=== PATIENT | male | born 1940 | race Asian ===

== ENCOUNTER 2020-07-20 15:15 | Emergency (ER) | payer MEDICARE ==
[2020-07-20 15:35] VITALS: BP 155/86; PULSE 72; RESP 18; TEMP 97
[2020-07-20] MEDS ORDERED: LIDOCAINE 1% INJ 10MG/ML (20 ML MDV) SQ ONE (16:50)
[2020-07-20] MEDS ORDERED: BACITRACIN OINT 1 EACH PACKET TOPICAL ONE (16:50)
--- NOTE | 2020-07-20 17:34 | ED ---
Fall HPI - General Chief Complaint: Fall Stated Complaint: Fall, L ear bledding Time Seen by Provider: 07/20/20 16:40 Source: family Mode of arrival: ambulatory - History of Present Illness Initial Comments: Patient is an 80-year-old male presenting to the emergency department with a laceration to his left ear. Patient speaks very little Bulgarian, family members are helping to translate. Family states that patient lost his balance on a step, and fell into a chair, slicing his left ear on the chair, about 6 hors prior to arrival. He did not hit his head hard, but more "fell into the side of it." There is no loss of consciousness. He's had no headache, no neck pain. There is no nausea or vomiting, no blurry vision. Patient states he feels fine. He states he simply here for the laceration repair. He is up-to-date with his tetanus vaccine. He is not on blood thinners. There are no further complaints at this time. - Related Data Previous Rx's Medication Instructions Recorded Docusate [Colace] 100 mg PO BID #30 capsule 02/22/16 HYDROcodone/APAP 5-325MG [[place] 1 tab PO Q4HR PRN #30 tab 02/22/16 5-325] Tamsulosin HCl [Flomax] 0.4 mg PO DAILY #20 cap 02/23/16 Allergies Allergy/AdvReac Type Severity Reaction Status Date / Time No Known Allergies Allergy Verified 07/20/20 15:35 Review of Systems ROS Statement: Those systems with pertinent positive or pertinent negative responses have been documented in the HPI. ROS Other: All systems not noted in ROS Statement are negative. Past Medical History Past Medical History: Osteoarthritis (OA), Prostate Disorder Additional Past Medical History / Comment(s): PT HAS HAD STOMACH ACHE FOR WEEKS, possible prostate problems History of Any Multi-Drug Resistant Organisms: None Reported Additional Past Surgical History / Comment(s): CATARACT PHOEBE. EYES, COLONOSCOPY Past Anesthesia/Blood Transfusion Reactions: No Reported Reaction Additional Past Anesthesia/Blood Transfusion Reaction / Comment(s): UNKNOWN FOR FAMILY- PT IS VERY HEALTHY & HAS HAD ONLY CATARACT SURGERY DONE Past Psychological History: No Psychological Hx Reported Past Alcohol Use History: None Reported Past Drug Use History: None Reported - Past Family History Mother Family Medical History: No Reported History General Exam - General Exam Comments Initial Comments: GENERAL: Patient is well-developed and well-nourished. Patient is nontoxic and in no acute distress. HEAD: Atraumatic, normocephalic. There is no hematomas, no signs of basal skull fracture. EYES: Pupils equal round and reactive to light, extraocular movements intact, sclera anicteric, conjunctiva are normal. Eyelids were unremarkable. ENT: TMs normal, nares patent, oropharynx clear without exudates. Moist mucous membranes. NECK: Normal range of motion, supple without lymphadenopathy or JVD. There is no midline tenderness. LUNGS: Unlabored respirations. Breath sounds clear to auscultation bilaterally and equal. No wheezes rales or rhonchi. HEART: Regular rate and rhythm without murmurs, rubs or gallops. ABDOMEN: Soft, nontender, normoactive bowel sounds. No guarding, no rebound. No masses appreciated. : Deferred MUSCULOSKELETAL: Normal extremities with adequate strength and normal range of motion, no pitting or edema. No clubbing or cyanosis. NEUROLOGICAL: Patient is alert and oriented x 3. Motor and sensory are also intact. Cranial nerves II through XII grossly intact. Symmetrical smile. Normal speech, normal gait. PSYCH: Normal mood, normal affect. SKIN: Warm, Dry, normal turgor, no rashes. Patient has a 2 cm laceration in the left upper earlobe, mild bleeding, controlled with bandage. Limitations: no limitations, language barrier Course Vital Signs 07/20/20 07/20/20 15:27 17:47 Temperature 97.0 F L Pulse Rate 72 Respiratory 18 18 Rate Blood Pressure 155/86 O2 Sat by Pulse 98 Oximetry Procedures - Laceration Laceration #1 Consent Obtained: verbal consent Indication: laceration Site: face (Left upper earlobe) Size (cm): 2 Description: linear Depth: simple, single layer Anesthetic Used: lidocaine 1% Anesthesia Technique: local infiltration Amount (mls): 3 Pre-repair: irrigated extensively Type of Sutures: nylon Size of Sutures: 5-0 Number of Sutures: 6 Technique: simple, interrupted Patient Tolerated Procedure: well Medical Decision Making - Medical Decision Making Patient is an 80-year-old male here for a laceration to his left ear. Patient lost his balance tripped on a step, fell into a chair slicing his left ear about 6 hours prior to arrival. He states he did not hit his head hard, this no loss of consciousness he has no headache. No blood thinners. No nausea or vomiting. His exam is unremarkable except for a 2 cm laceration in his left upper earlobe. He is up-to-date with his tetanus vaccine. Patient's wound was cleaned, closed with 6, 5-0 sutures. He tolerated procedure well. He is stable for discharge. Topical antibiotic will be used. Stitches will be removed in 7-10 days. Patient is stable for discharge. Patient is in agreement with this plan of care. Return parameters were discussed with the patient and they verbalized understanding. Case discussed with Dr. Anderson. Disposition Clinical Impression: Fall, Laceration of left earlobe Disposition: HOME SELF-CARE Condition: Stable Instructions (If sedation given, give patient instructions): Care For Your Stitches (ED) Additional Instructions: Please return to the Emergency Department if symptoms worsen or any other concerns. Stitches need to be removed in 7-10 days. Apply topical antibiotic twice daily. Keep clean and dry. May take showers as normal. Is patient prescribed a controlled substance at d/c from ED?: No Referrals: Kevin Narvaez MD [Primary Care Provider] - 1-2 days
== END 2020-07-20 17:48 | disposition home or self-care (01) ==
LOC: EC 15:15
DX: S01.312A Laceration without foreign body of left ear, initial encounter (principal); M19.90 Unspecified osteoarthritis, unspecified site; W07.XXXA Fall from chair, initial encounter
CPT/HCPCS: 99283; 12011; J2001

== ENCOUNTER 2020-08-09 16:10 | Emergency (ER) | payer MEDICARE ==
[2020-08-09 16:21] VITALS: BP 152/83; PULSE 95; RESP 18; TEMP 99
--- NOTE | 2020-08-09 16:42 | ED ---
General Adult HPI - General Chief complaint: Fall Stated complaint: Weakness Time Seen by Provider: 08/09/20 16:26 Source: patient, family, EMS, RN notes reviewed, old records reviewed Mode of arrival: EMS Limitations: language barrier - History of Present Illness Initial comments: 80-year-old male presenting status post fall. 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 History is obtained from the patient's brother who is bedside who does speak [place]ian. The patient does not speak [place]ian very well but is able to answer some simple questions. Patient denying any pain complaints. He has had several falls in the last 2 weeks but does not wish to have this evaluated. He denies any pain complaints. He denies head injury. He states that there was a minor elbow injury and abrasion but does not want imaging or tenderness. Patient wishes to be discharged without further testing. - Related Data Previous Rx's Medication Instructions Recorded Docusate [Colace] 100 mg PO BID #30 capsule 02/22/16 HYDROcodone/APAP 5-325MG [[place] 1 tab PO Q4HR PRN #30 tab 02/22/16 5-325] Tamsulosin HCl [Flomax] 0.4 mg PO DAILY #20 cap 02/23/16 Allergies Allergy/AdvReac Type Severity Reaction Status Date / Time No Known Allergies Allergy Verified 08/09/20 16:20 Review of Systems ROS Statement: Those systems with pertinent positive or pertinent negative responses have been documented in the HPI. ROS Other: All systems not noted in ROS Statement are negative. Past Medical History Past Medical History: Osteoarthritis (OA), Prostate Disorder Additional Past Medical History / Comment(s): PT HAS HAD STOMACH ACHE FOR WEEKS, possible prostate problems History of Any Multi-Drug Resistant Organisms: None Reported Additional Past Surgical History / Comment(s): CATARACT PHOEBE. EYES, COLONOSCOPY Past Anesthesia/Blood Transfusion Reactions: No Reported Reaction Additional Past Anesthesia/Blood Transfusion Reaction / Comment(s): UNKNOWN FOR FAMILY- PT IS VERY HEALTHY & HAS HAD ONLY CATARACT SURGERY DONE Past Psychological History: No Psychological Hx Reported Past Alcohol Use History: None Reported Past Drug Use History: None Reported - Past Family History Mother Family Medical History: No Reported History General Exam Limitations: language barrier General appearance: alert, in no apparent distress Head exam: Present: atraumatic, normocephalic Eye exam: Present: normal appearance, PERRL ENT exam: Present: other (Left ear is well-healed) Neck exam: Present: normal inspection. Absent: tenderness, meningismus Respiratory exam: Present: normal lung sounds bilaterally. Absent: respiratory distress, wheezes Cardiovascular Exam: Present: regular rate, normal rhythm GI/Abdominal exam: Present: soft. Absent: distended, tenderness, guarding, rebound Extremities exam: Present: other (Superficial abrasion right elbow, no deformity, normal range of motion, distal pulses intact, normal hair spring cutter strength bilaterally.) Neurological exam: Present: alert, other (Patient able to stand, he has 5 out of 5 strength in all extremities, no localizing features.). Absent: motor sensory deficit Skin exam: Present: warm, dry, abrasion (Superficial right elbow) Course Vital Signs 08/09/20 16:12 Temperature 99.0 F Pulse Rate 95 Respiratory 18 Rate Blood Pressure 152/83 O2 Sat by Pulse 97 Oximetry - Reevaluation(s) Reevaluation #1: 08/09/20 16:41 Patient offered an science interpreter, patient declined requests that family act as science interpreter. Medical Decision Making - Medical Decision Making 80-year-old male presents status post fall with minor elbow abrasion. Patient does not speak [place]ian but his brother who is at bedside does speak [place]ibian clearly. Patient is adamant that he does not want any further testing or evaluation and wishes to be discharged home. I will respect these wishes. There is no gross deformity, patient has stable vitals, he has a nonfocal neurologic exam. He does appear somewhat unsteady on his feet however according to family this is not new. Disposition Clinical Impression: Fall, Abrasion of right elbow Disposition: HOME SELF-CARE Condition: Fair Instructions (If sedation given, give patient instructions): Fall Prevention for Older Adults (ED), Abrasion (ED) Is patient prescribed a controlled substance at d/c from ED?: No Referrals: Kevin Narvaez MD [Primary Care Provider] - 1-2 days Time of Disposition: 16:42
== END 2020-08-09 16:57 | disposition home or self-care (01) ==
LOC: EC 16:10 → SUPCPDRO 16:10 → EC 16:57
DX: S50.311A Abrasion of right elbow, initial encounter (principal); M19.90 Unspecified osteoarthritis, unspecified site; W18.30XA Fall on same level, unspecified, initial encounter
CPT/HCPCS: 99284

== ENCOUNTER → 2021-01-22 | Outpatient (CLI) | payer MEDICARE ==
--- NOTE | 2021-01-23 08:42 | NM ---
EXAMINATION TYPE: NM DatScan Brain SPECT DATE OF EXAM: 01/22/2021 COMPARISON: NONE HISTORY: Bradycardia dyskinesia TECHNIQUE: 10 drops of Lugol's solution was administered 1 hour prior to injection as a thyroid bloc antonina agent. After the administration of 4.57 mCi I-123 Ioflupane DaTscan. Images obtained 3 hours p ost injection. SPECT images of the brain were acquired with axial and coronal reconstructions. FINDINGS: The axial SPECT images demonstrate increased background activity and symmetric and normal a ctivity within the bilateral striata. IMPRESSION: Normal radiotracer uptake bilaterally
== END | disposition home or self-care (01) ==
LOC: RADNMMAIN 10:55
PROVIDERS: ATTEND Psychiatry & Neurology Neurology
DX: R25.8 Other abnormal involuntary movements (principal)
CPT/HCPCS: 78803; A9584

== ENCOUNTER 2021-07-17 19:25 | Emergency (ER) | payer MEDICARE ==
[2021-07-17 20:44] VITALS: BP 145/22; PULSE 73; RESP 16; TEMP 99.1
[2021-07-17] MEDS ORDERED: CEPHALEXIN 500MG STARTER PACK 4 CAP BTL PO STA (21:52)
[2021-07-17] MEDS ORDERED: CEPHALEXIN 500 MG CAP PO STA (21:52)
--- NOTE | 2021-07-17 21:52 | ED ---
Male Urogenital HPI - General Chief complaint: Urogenital Stated complaint: blood in urine Time Seen by Provider: 07/17/21 21:31 Source: patient, RN notes reviewed, old records reviewed Mode of arrival: ambulatory Limitations: no limitations - History of Present Illness Initial comments: This is a 81-year-old male to the emergency department for evaluation. Patient presented with blood in the urine patient concerned for causing of blood in the ER. Here in the ER patient cannot urinate MD Complaint: dysuria, other (Hematuria) -: days(s) Location: abdomen Radiation: none Severity: mild Severity scale (1-10): 1 Quality: aching, burning Consistency: constant Improves with: none Worsens with: none indwelling catheter Reports: denies other symptoms - Related Data Previous Rx's Medication Instructions Recorded Docusate [Colace] 100 mg PO BID #30 capsule 02/22/16 HYDROcodone/APAP 5-325MG [[place] 1 tab PO Q4HR PRN #30 tab 02/22/16 5-325] Tamsulosin HCl [Flomax] 0.4 mg PO DAILY #20 cap 02/23/16 Allergies Allergy/AdvReac Type Severity Reaction Status Date / Time No Known Allergies Allergy Verified 07/18/21 01:49 Review of Systems ROS Statement: Those systems with pertinent positive or pertinent negative responses have been documented in the HPI. ROS Other: All systems not noted in ROS Statement are negative. Past Medical History Past Medical History: Osteoarthritis (OA), Prostate Disorder Additional Past Medical History / Comment(s): PT HAS HAD STOMACH ACHE FOR WEEKS, possible prostate problems History of Any Multi-Drug Resistant Organisms: None Reported Additional Past Surgical History / Comment(s): CATARACT PHOEBE. EYES, COLONOSCOPY Past Anesthesia/Blood Transfusion Reactions: No Reported Reaction Additional Past Anesthesia/Blood Transfusion Reaction / Comment(s): UNKNOWN FOR FAMILY- PT IS VERY HEALTHY & HAS HAD ONLY CATARACT SURGERY DONE Past Psychological History: No Psychological Hx Reported Past Alcohol Use History: None Reported Past Drug Use History: None Reported - Past Family History Mother Family Medical History: No Reported History General Exam Limitations: no limitations General appearance: alert, in no apparent distress Head exam: Present: atraumatic, normocephalic, normal inspection Eye exam: Present: normal appearance, PERRL, EOMI. Absent: scleral icterus, conjunctival injection, periorbital swelling ENT exam: Present: normal exam, mucous membranes moist Neck exam: Present: normal inspection. Absent: tenderness, meningismus, lymphadenopathy Respiratory exam: Present: normal lung sounds bilaterally. Absent: respiratory distress, wheezes, rales, rhonchi, stridor Cardiovascular Exam: Present: regular rate, normal rhythm, normal heart sounds. Absent: systolic murmur, diastolic murmur, rubs, gallop, clicks GI/Abdominal exam: Present: soft, normal bowel sounds. Absent: distended, tenderness, guarding, rebound, rigid Extremities exam: Present: normal inspection, full ROM, normal capillary refill. Absent: tenderness, pedal edema, joint swelling, calf tenderness Back exam: Present: normal inspection Neurological exam: Present: alert, oriented X3, CN II-XII intact Psychiatric exam: Present: normal affect, normal mood Skin exam: Present: warm, dry, intact, normal color. Absent: rash Course Vital Signs 07/17/21 20:36 Temperature 99.1 F Pulse Rate 73 Respiratory 16 Rate Blood Pressure 145/22 O2 Sat by Pulse 98 Oximetry - Reevaluation(s) Reevaluation #1: 07/17/21 Medical records reviewed Patient informed results and questions answered Patient symptoms are improved here in the emergency department Medical Decision Making - Medical Decision Making 81 male to the emergency department for evaluation of blood in the Rabago catheter. Patient has current indwelling Rabago. Rabago recently changed not trauma. Rabago change in the ER passing ER without difficulty patient can be discharged home - Lab Data Lab Results 07/17/21 Range/Units 21:58 Urine Color Colorless Urine Appearance Clear (Clear) Urine pH 6.0 (5.0-8.0) Ur Specific [place] 1.000 L (1.001-1.035) Urine Protein Negative (Negative) Urine Glucose (UA) Negative (Negative) Urine Ketones Negative (Negative) Urine Blood Negative (Negative) Urine Nitrite Negative (Negative) Urine Bilirubin Negative (Negative) Urine Urobilinogen <2.0 (<2.0) mg/dL Ur Leukocyte Esterase Negative (Negative) Disposition Clinical Impression: Hematuria, Indwelling Rabago catheter present Disposition: HOME SELF-CARE Condition: Good Instructions (If sedation given, give patient instructions): Rabago Catheter Placement and Care (ED), Hematuria (ED) Is patient prescribed a controlled substance at d/c from ED?: No Referrals: Kevin Narvaez MD [Primary Care Provider] - 1-2 days
[2021-07-17 22:05] LABS: Appearance,Urine Clear (Clear); Bilirubin,Urine Negative (Negative); Blood,Urine Negative (Negative); Color,Urine Colorless; Glucose,Urine (UA) Negative (Negative); Ketones,Urine Negative (Negative); Leukocyte Esterase,Urine Negative (Negative); Nitrite,Urine Negative (Negative); Protein,Urine Negative (Negative); Urobilinogen,Urine <2.0 mg/dL (<2.0)
== END 2021-07-17 23:04 | disposition home or self-care (01) ==
LOC: EC 19:25
DX: R31.9 Hematuria, unspecified (principal)
CPT/HCPCS: 81003; 99283